=== PATIENT | female | born 1985 | race Two or more races ===

== ENCOUNTER 2018-04-02 11:57 | Inpatient (IN) | payer MEDICARE, MEDICAID ==
[~2018-04-02] VITALS: Ht 170.2 cm; Wt 117.9 kg
[2018-04-02 12:54] LABS: Basophils # (auto) 0.1 uL; Eosinophils # (auto) 0.1 uL; Lymphocytes # (auto) 1.9 uL; Neutrophils # (auto) 4.1 uL; White Blood Cell 6.6 10^3/uL (4.4-10.8)
[2018-04-02 12:56] LABS: Basophils % (auto) 1.3 % (0.0-2.0); Eosinophils % (auto) 2.1 % (0.0-7.0); Hematocrit 18.8 % (36.0-46.0); Lymphocytes % (auto) 28.3 % (10.0-50.0); Mean Corpuscular Hemoglobin 34.6 pg (28.0-32.0); Mean Corpuscular Hgb Conc. 34.6 g/dL (32.0-36.0); Monocytes # (auto) 0.3 uL; Monocytes % (auto) 5.1 % (0.0-12.0); Neutrophils % (auto) 63.2 % (37.0-80.0); Platelet Count (auto) 210 10^3/uL (140-450); Red Blood Cells 1.88 10^6/uL (4.0-5.20); Red Cell Distribution Width 15.5 % (11.8-14.3)
[2018-04-02 13:02] LABS: Hemoglobin 6.6 g/dL (12.2-16.2)
[2018-04-02 13:09] LABS: INR 0.91 (0.9-1.15); Partial Thromboplastin Time 26.2 sec (23.78-33.04); Prothrombin Time 9.8 sec (9.27-12.13)
[2018-04-02 13:11] LABS: Albumin 3.5 g/dL (3.4-5.0); Anion Gap 8 (5-15); Aspartate Aminotransferase 13 U/L (15-37); Blood Urea Nitrogen 13 mg/dL (7-18); Calcium 7.6 mg/dL (8.5-10.1); Carbon Dioxide 33 mmol/L (21-32); Chloride 97 mmol/L (98-107); GFR African American 15 mL/min; GFR Non-African American 12 mL/min; Glucose 89 mg/dL (74-106); Magnesium 1.9 mg/dL (1.6-2.6); Potassium 3.8 mmol/L (3.5-5.1); Sodium 138 mmol/L (136-145)
[2018-04-02 13:20] LABS: Alanine Aminotransferase 15 U/L (13-56); Alkaline Phosphatase 35 U/L (45-117); Bilirubin, Total 0.3 mg/dL (0.2-1.0); Total Protein 7.2 g/dL (6.4-8.2)
[2018-04-02] MEDS ORDERED: SEVE800T8 PO (13:54)
[2018-04-02] MEDS ORDERED: CALC667C PO (13:54)
[2018-04-02] MEDS ORDERED: CITA-73 PO (13:54)
[2018-04-02] MEDS ORDERED: LORA2TAB10 PO (13:54)
[2018-04-02] MEDS ORDERED: CALC0.5C PO (13:54)
[2018-04-02] MEDS: ACETAMINOPHEN 500 MG TAB PO PRN ×2 (15:04→21:13)
[2018-04-02 15:15] VITALS: BP 131/86
[2018-04-02] MEDS: LORazepam 0.5 MG TAB PO PRN (15:35)
[2018-04-02 16:53] VITALS: BP 116/70
[2018-04-02] MEDS: SEVELAMER 800 MG TAB PO SCH (18:00)
[2018-04-02] MEDS: FERROUS SULFATE 325 MG TAB PO SCH (19:15)
[2018-04-02 23:26] VITALS: BP 124/80
[2018-04-03] VITALS (11 sets, daily range): BP systolic 121–151; BP diastolic 30–78
[2018-04-03 07:03] LABS: Basophils # (auto) 0.1 uL; Eosinophils # (auto) 0.1 uL; Eosinophils % (auto) 2.1 % (0.0-7.0); Hematocrit 19.3 % (36.0-46.0); Lymphocytes # (auto) 2.1 uL; Red Blood Cells 1.95 10^6/uL (4.0-5.20); White Blood Cell 5.6 10^3/uL (4.4-10.8)
[2018-04-03 07:04] LABS: Basophils % (auto) 1.3 % (0.0-2.0); Lymphocytes % (auto) 37.8 % (10.0-50.0); Mean Corpuscular Hemoglobin 34.2 pg (28.0-32.0); Mean Corpuscular Hgb Conc. 34.5 g/dL (32.0-36.0); Mean Corpuscular Volume 99.2 fL (80.0-100.0); Monocytes # (auto) 0.4 uL; Monocytes % (auto) 6.6 % (0.0-12.0); Neutrophils # (auto) 2.9 uL; Neutrophils % (auto) 52.2 % (37.0-80.0); Red Cell Distribution Width 15.5 % (11.8-14.3)
[2018-04-03 07:07] LABS: Hemoglobin 6.8 g/dL (12.2-16.2); Platelet Count (auto) 152 10^3/uL (140-450)
[2018-04-03 07:20] LABS: BUN/Creatinine Ratio 3.2; Calcium 7.3 mg/dL (8.5-10.1); Potassium 4.8 mmol/L (3.5-5.1)
[2018-04-03] MEDS: FERROUS SULFATE 325 MG TAB PO SCH ×2 (08:18→19:05)
[2018-04-03] MEDS: SEVELAMER 800 MG TAB PO SCH ×3 (08:18→19:06)
[2018-04-03] MEDS ORDERED: CITALOPRAM HYDROBR 20 MG TAB PO SCH (10:00)
[2018-04-03] MEDS ORDERED: CALCITRIOL 0.25 MCG CAP PO SCH (10:00)
[2018-04-03] MEDS: LORazepam 0.5 MG TAB PO PRN (13:06)
[2018-04-03 18:24] LABS: Hemoglobin 7.8 g/dL (12.2-16.2)
[2018-04-03 18:26] LABS: Hematocrit 22.2 % (36.0-46.0)
== END 2018-04-03 21:39 | disposition home or self-care (01) | DRG 811 ==
LOC: ER 11:59 → OVERFLOW 12:00 → EAST 17:45
PROVIDERS: ADMIT Internal Medicine; ATTEND Internal Medicine
PROC: 30233N1 Transfusion of Nonautologous Red Blood Cells into Peripheral Vein, Percutaneous Approach (ICD-10-PCS; principal; 2018-04-02)
DX: D64.9 Anemia, unspecified (principal); N18.6 End stage renal disease; I12.0 Hypertensive chronic kidney disease with stage 5 chronic kidney disease or end stage renal disease; Z68.41 Body mass index [BMI] 40.0-44.9, adult; N93.8 Other specified abnormal uterine and vaginal bleeding; D50.0 Iron deficiency anemia secondary to blood loss (chronic); E83.51 Hypocalcemia; E66.01 Morbid (severe) obesity due to excess calories; Z99.2 Dependence on renal dialysis; Z88.1 Allergy status to other antibiotic agents; Z88.8 Allergy status to other drugs, medicaments and biological substances; Z88.5 Allergy status to narcotic agent
CPT/HCPCS: 36415; 36430; 71046; 76856; 80048; 80053; 83735; 84484; 84702; 85014; 85018; 85025; 85610; 85730; 86850; 86900; 86901; 86920; 93005